=== PATIENT | male | born 1970 | race Two or more races ===

== ENCOUNTER 2023-09-27 13:24 | Inpatient (IN) | payer BC ==
[2023-09-27] VITALS (13 sets, daily range): BP systolic 118–140; BP diastolic 60–75; PULSE 69–82; RESP 17–19; TEMP 97.9–98.1; O2SAT 96–98
[~2023-09-27] VITALS: Ht 175.3 cm; Wt 100.0 kg
[2023-09-27 13:36] LABS: COVID AG,FIA SOURCE NASAL SWAB
[2023-09-27] MEDS ORDERED: METO25TA3 PO (13:37)
[2023-09-27] MEDS ORDERED: LOSA-381 PO (13:37)
[2023-09-27] MEDS ORDERED: CLOP75TA60 PO (13:37)
[2023-09-27] MEDS ORDERED: ROSU20TA23 PO (13:37)
[2023-09-27] MEDS ORDERED: ASPI81TA87 PO (13:37)
[2023-09-27 13:38] LABS: BASOPHILS % (AUTO) 0.6 % (0.0-2.0); EOSINOPHILS % (AUTO) 2.3 % (1.0-6.0); HEMATOCRIT 41.5 % (41-53); HEMOGLOBIN 14.1 g/dL (13.5-17.5); LYMPHOCYTES # (AUTO) 1.6 K/uL (1.0-4.8); LYMPHOCYTES % (AUTO) 21.7 % (22.0-44.0); MEAN CORPUSCULAR HGB CONC 33.9 G/dL (31.0-37.0); MEAN CORPUSCULAR VOLUME 83 fL (80-100); MONOCYTES # (AUTO) 0.4 K/uL (0.1-1.0); MONOCYTES % (AUTO) 5.8 % (2.0-9.0); NEUTROPHILS # (AUTO) 5.3 K/uL (1.8-7.7); NEUTROPHILS % (AUTO) 69.6 % (40.0-70.0); PLATELET COUNT (AUTO) 291 K/uL (150-450); RED BLOOD CELL COUNT(AUTO) 5.03 MIL/uL (4.50-5.90); RED CELL DISTRIBUTION WIDTH 13.8 % (11.5-14.5); WHITE BLOOD COUNT (AUTO) 7.6 K/uL (4.5-11.0)
[2023-09-27 13:50] LABS: ANION GAP 6 mmol/L (8-16); CALCIUM, TOTAL 9.1 mg/dL (8.8-10.5); CARBON DIOXIDE 29 mmol/L (22-29); CHLORIDE 101 mmol/L (98-107); CREATININE 0.92 mg/dL (0.60-1.30); GLOMERULAR FILTR. RATE CALC > 60 mL/min (>60); GLUCOSE,RANDOM 93 mg/dL (70-110); POTASSIUM 3.8 mmol/L (3.5-5.1); SODIUM SERUM 136 mmol/L (136-145); UREA NITROGEN, BLOOD 11 mg/dL (7-18)
[2023-09-27 13:54] LABS: INR 1.1 (0.9-1.1); PROTHROMBIN TIME 11.2 SEC (9.4-11.6)
[2023-09-27 13:56] LABS: TROPONIN I-HIGH SENSITIVITY 48 ng/L (<76)
[2023-09-27 13:57] LABS: SARS-COV2 (COVID) ANTIGEN,FIA Negative (Negative)
[2023-09-27 13:59] LABS: B-TYPE NATRIURETIC PEPTIDE 28 pg/mL (0-100)
[2023-09-27] MEDS ORDERED: SODIUM BICARBONATE 50 MEQ/50 ML VIAL ONE (13:59)
[2023-09-27] MEDS ORDERED: LIDOCAINE/PF 1% 30 ML VIAL ONE (13:59)
[2023-09-27] MEDS ORDERED: IOHEXOL 350 MG/ML 100 ML VIAL ONE (13:59)
[2023-09-27] MEDS ORDERED: HEPARIN SODIUM 1000 UNITS/NS 1,000 ML ONE (14:00)
[2023-09-27 14:04] LABS: APPEARANCE,URINE CLEAR (CLEAR); BILIRUBIN,URINE NEGATIVE (NEGATIVE); COLOR,URINE LIGHT YELLOW (YELLOW); GLUCOSE, URINE (UA) NEGATIVE (NEGATIVE); KETONES,URINE NEGATIVE (NEGATIVE); LEUKOCYTE ESTERASE ,URINE NEGATIVE (NEGATIVE); NITRATE,URINE NEGATIVE (NEGATIVE); OCCULT BLOOD,URINE TRACE (NEGATIVE); PH,URINE 5.5 (5.0-8.0); PROTEIN,URINE NEGATIVE (NEGATIVE); SPECIFIC GRAVITIY, URINE 1.015 (1.003-1.030); UROBILINOGEN,URINE <=1.0 mg/dL (<=1.0)
[2023-09-27 14:08] LABS: BACTERIA,URINE None Seen /HPF (None Seen); RBC,URINE 0-2 /HPF (0-2); WBC,URINE None Seen /HPF (0-5)
[2023-09-27 14:15] LABS: ALANINE AMINOTRANSFERASE 52 U/L (12-78); ALBUMIN 3.9 g/dL (3.4-5.0); ALKALINE PHOSPHATASE 104 U/L (46-116); ASPARTATE AMINOTRANSFERASE 29 U/L (15-37); BILIRUBIN,TOTAL 0.7 mg/dL (0.1-1.0); CREATINE KINASE, TOTAL ONLY 111 U/L (39-308); TOTAL PROTEIN, SERUM 8.5 g/dL (6.4-8.2)
[2023-09-27] MEDS ORDERED: FentaNYL CITRATE PF 100 MCG/2 ML VIAL ONE ×2 (14:24→14:47)
[2023-09-27] MEDS ORDERED: MIDAZOLAM HCL 2 MG/2 ML VIAL ONE ×2 (14:24→14:47)
[2023-09-27] MEDS ORDERED: MIDAZOLAM HCL 2 MG/2 ML VIAL IVP ONE ×2 (14:45→15:00)
[2023-09-27] MEDS ORDERED: FentaNYL CITRATE PF 100 MCG/2 ML VIAL IVP ONE ×2 (14:45→15:00)
[2023-09-27] MEDS ORDERED: IOHEXOL 300 MG/ML 100 ML VIAL ICOR ONE (14:45)
[2023-09-27] MEDS ORDERED: SODIUM CHLORIDE 0.9% 500 ML IV ONE (14:45)
[2023-09-27] MEDS ORDERED: HEPARIN SODIUM 1000 UNITS/NS 1,000 ML IARTER ONE (14:45)
[2023-09-27] MEDS ORDERED: LIDOCAINE 1% 30 ML/SOD BICARB 8.4% 4 ML SQ ONE (14:45)
[2023-09-27] MEDS: ROSUVASTATIN CALCIUM 20 MG TABLET PO SCH (17:15)
[2023-09-27] MEDS ORDERED: MAGNESIUM HYDROXIDE SUSPENSION 30 ML UDCUP PO PRN (17:15)
[2023-09-27] MEDS: METOPROLOL SUCCINATE 25 MG ER TABLET PO SCH (17:15)
[2023-09-27] MEDS ORDERED: 0.9% SODIUM CHLORIDE 10 ML SYRINGE IVP PRN (17:15)
[2023-09-27] MEDS ORDERED: OxyCODONE HCL/ACETAMINOPHEN 5-325 MG TABLET PO PRN ×2 (17:15)
[2023-09-27] MEDS: CLOPIDOGREL BISULFATE 75 MG TABLET PO SCH (17:15)
[2023-09-27] MEDS ORDERED: ONDANSETRON HCL 4 MG/2 ML VIAL IVP PRN (17:15)
[2023-09-27] MEDS ORDERED: ACETAMINOPHEN 325 MG TABLET PO PRN (17:15)
[2023-09-27] MEDS: ASPIRIN 81 MG DR TABLET PO SCH (17:15)
[2023-09-27] MEDS: LOSARTAN POTASSIUM 25 MG TABLET PO SCH (17:15)
[2023-09-27] MEDS: DOCUSATE SODIUM 100 MG CAPSULE PO SCH (20:44)
[2023-09-28 01:13] VITALS: BP 123/70; PULSE 74; RESP 18; TEMP 97.9; O2SAT 99
[2023-09-28 05:13] VITALS: BP 109/54; PULSE 70; RESP 17; TEMP 98; O2SAT 98
[2023-09-28 08:14] LABS: BASOPHILS % (AUTO) 0.4 % (0.0-2.0); EOSINOPHILS % (AUTO) 2.9 % (1.0-6.0); HEMATOCRIT 39.9 % (41-53); HEMOGLOBIN 13.5 g/dL (13.5-17.5); LYMPHOCYTES # (AUTO) 1.4 K/uL (1.0-4.8); LYMPHOCYTES % (AUTO) 20.2 % (22.0-44.0); MEAN CORPUSCULAR HEMOGLOBIN 28.1 pg (26.0-34.0); MEAN CORPUSCULAR HGB CONC 33.9 G/dL (31.0-37.0); MEAN CORPUSCULAR VOLUME 83 fL (80-100); MONOCYTES # (AUTO) 0.4 K/uL (0.1-1.0); MONOCYTES % (AUTO) 6.5 % (2.0-9.0); NEUTROPHILS # (AUTO) 4.8 K/uL (1.8-7.7); PLATELET COUNT (AUTO) 253 K/uL (150-450); RED BLOOD CELL COUNT(AUTO) 4.81 MIL/uL (4.50-5.90); RED CELL DISTRIBUTION WIDTH 13.7 % (11.5-14.5); WHITE BLOOD COUNT (AUTO) 6.9 K/uL (4.5-11.0)
[2023-09-28 08:24] LABS: ANION GAP 7 mmol/L (8-16); CALCIUM, TOTAL 8.9 mg/dL (8.8-10.5); CARBON DIOXIDE 27 mmol/L (22-29); CHLORIDE 103 mmol/L (98-107); CREATININE 0.86 mg/dL (0.60-1.30); GLOMERULAR FILTR. RATE CALC > 60 mL/min (>60); GLUCOSE,RANDOM 85 mg/dL (70-110); POTASSIUM 4.2 mmol/L (3.5-5.1); SODIUM SERUM 137 mmol/L (136-145); UREA NITROGEN, BLOOD 13 mg/dL (7-18)
[2023-09-28 08:32] LABS: CHOL/HDL RATIO 2.3 (4.2-7.3)
[2023-09-28] MEDS: METOPROLOL SUCCINATE 25 MG ER TABLET PO SCH (08:41)
[2023-09-28] MEDS: ROSUVASTATIN CALCIUM 20 MG TABLET PO SCH (08:42)
[2023-09-28] MEDS: ASPIRIN 81 MG DR TABLET PO SCH (08:42)
[2023-09-28] MEDS: LOSARTAN POTASSIUM 25 MG TABLET PO SCH (08:42)
[2023-09-28] MEDS: CLOPIDOGREL BISULFATE 75 MG TABLET PO SCH (08:42)
[2023-09-28] MEDS ORDERED: PANTOPRAZOLE SODIUM 40 MG/VIAL IVP SCH (09:00)
[2023-09-28] MEDS: DOCUSATE SODIUM 100 MG CAPSULE PO SCH (09:00)
[2023-09-28] MEDS ORDERED: METF-81 PO (15:23)
[2023-09-30] MEDS ORDERED: MetFORMIN HCL 500 MG ER TABLET PO SCH (08:00)
== END 2023-09-28 16:10 | disposition home or self-care (01) | DRG 287 ==
LOC: EMS 13:25 → 5N 15:38
PROVIDERS: ADMIT Internal Medicine; ATTEND Internal Medicine
PROC: 4A023N7 Measurement of Cardiac Sampling and Pressure, Left Heart, Percutaneous Approach (ICD-10-PCS; principal; 2023-09-27)
PROC: B2111ZZ Fluoroscopy of Multiple Coronary Arteries using Low Osmolar Contrast (ICD-10-PCS; 2023-09-27)
PROC: B2151ZZ Fluoroscopy of Left Heart using Low Osmolar Contrast (ICD-10-PCS; 2023-09-27)
DX: I25.110 Atherosclerotic heart disease of native coronary artery with unstable angina pectoris (principal); I10 Essential (primary) hypertension; E78.00 Pure hypercholesterolemia, unspecified; Z20.822 Contact with and (suspected) exposure to COVID-19; E11.9 Type 2 diabetes mellitus without complications; Z79.82 Long term (current) use of aspirin; Z79.01 Long term (current) use of anticoagulants; Z79.899 Other long term (current) drug therapy
CPT/HCPCS: 71045; 76999; 80048; 80053; 80061; 81001; 82550; 83036; 83880; 84484; 85025; 85610; 85730; 93005; 99285; C9113; J1644; J2250; J3010; J3490; Q9967; 36415-L1; 36415-TC